=== PATIENT | female | born 1960 | race African-American/Black ===

== ENCOUNTER → 2018-01-02 | Outpatient (CLI) | payer BC ==
[2018-01-02 10:29] LABS: FASTING GAC 100 (<110)
[2018-01-02 10:38] LABS: ALANINE AMINOTRANSFERASE 41 U/L (9-52); ALBUMIN 4.6 g/dL (3.5-5.0); ALKALINE PHOSPHATASE 58 U/L (38-126); ANION GAP 13 (5-19); ASPARTATE AMINO TRANSFERASE 29 U/L (14-36); BILIRUBIN,DIRECT 0.3 mg/dL (0.0-0.4); BILIRUBIN,TOTAL 0.3 mg/dL (0.2-1.3); BLOOD UREA NITROGEN 20 mg/dL (7-20); CALCIUM 9.8 mg/dL (8.4-10.2); CARBON DIOXIDE 29 mmol/L (22-30); CHLORIDE 103 mmol/L (98-107); GLUCOSE 97 mg/dL (75-110); GLUCOSE,FASTING 96 mg/dL (<110); POTASSIUM 4.2 mmol/L (3.6-5.0); SODIUM 144.8 mmol/L (137-145); TOTAL PROTEIN 8.1 g/dL (6.3-8.2)
[2018-01-02 10:55] LABS: FREE T4 (FREE THYROXINE) 0.61 ng/dL (0.78-2.19)
[2018-01-02 11:08] LABS: THYROID STIMULATING HORMONE 1.57 uIU/mL (0.47-4.68)
[2018-01-04 07:19] LABS: THYROGLOBULIN AB <1.0 IU/mL (0.0-0.9); THYROID PEROXIDASE (TPO) AB 9 IU/mL (0-34); THYROID STIM IMMUNOGLOBULIN <0.10 IU/L (0.00-0.55)
[2018-01-06 15:39] LABS: INSULIN 1 HOUR (60 MIN) 56.9 uIU/mL (0.0-163.5); INSULIN 2 HOUR (120 MIN) 102.5 uIU/mL (0.0-145.4); INSULIN FASTING 10.3 uIU/mL (2.6-24.9)
== END ==
LOC: OD 08:35
PROVIDERS: ATTEND Nurse Practitioner
DX: E16.2 Hypoglycemia, unspecified (principal); Z13.29 Encounter for screening for other suspected endocrine disorder; E55.9 Vitamin D deficiency, unspecified
CPT/HCPCS: 36415; 80053; 82306; 82951; 83036; 83519; 83525; 84439; 84443; 86376; 86800